=== PATIENT | male | born 1990 | race Caucasian/White ===

== ENCOUNTER 2017-12-14 11:40 | Emergency (ER) | payer OTHER ==
--- NOTE | 2017-12-14 12:48 | ED ---
Syncope/Near Syncope - HPI Summary HPI Summary: The pt is a 27 y/o male [facility] c/o an unwitnessed syncopal episode at 10: 30 hrs today. It occurred while doing bench presses at the gym for about 20 minutes. He felt nauseous , hitting his head on the corner of a wall, and injuring his R eyebrow. The pt is uncertain how long the syncope episode lasted. He notes difficulty ambulating, dizziness and lightheadedness that forced him to crawl upstairs to his room but denies vomiting. The pt arrived with a R eyebrow injury with controlled bleeding. He reports experiencing similar sx before, usually alleviating by stopping the physical exercise. The pt is unsure when he received his last tetanus shot. - History Of Current Complaint Chief Complaint: EDHeadInjury Time Seen by Provider: 12/14/17 12:21 Hx Obtained From: Patient Onset/Duration: Sudden Onset - 10:30, Still Present - R eyebrow laceration, Resolved - Syncope Context: Unwitnessed, Loss Of Consciousness Associated Head Trauma: Yes Alleviating Factor(s): Rest Associated Signs And Symptoms: Negative - Vomiting, Dizzy, Head Trauma (Recent) , Headache, Other - LOC Frequency: Episodes x___ - 1 - Allergies/Home Medications Allergies/Adverse Reactions: Allergies Allergy/AdvReac Type Severity Reaction Status Date / Time Penicillins Allergy Unknown Verified 12/14/17 11:57 Reaction Details Home Medications: Home Medications Ibuprofen TAB* [Advil TAB*] 200 mg PO Q6H PRN 12/14/17 [History Confirmed ] PMH/Surg Hx/FS Hx/Imm Hx Previously Healthy: Yes Endocrine/Hematology History: Denies: Hx Diabetes Cardiovascular History: Denies: Hx Hypertension Respiratory History: Denies: Hx Asthma Sensory History: Denies: Hx Deafness Opthamlomology History: Denies: Hx Legally Blind Neurological History: Denies: Hx Seizures - Cancer History Hx Hematologic Symptoms: No Hx Chemotherapy: No - Surgical History Surgery Procedure, Year, and Place: Had a mole removed from the LUE when young. Recently had a hernia repair - Immunization History Date of Tetanus Vaccine: The pt is uncertain Infectious Disease History: No Infectious Disease History: Reports: Traveled Outside the [place] in Last 30 Days - [place] - Family History Known Family History: Positive: Other - Cancer Negative: Cardiac Disease, Hypertension, Diabetes, Seizure Disorder - Social History Occupation: Student Lives: Dormitory/Roommates Review of Systems Constitutional: Other - Positive: Dizziness, lightheadedness Positive: Nausea. Negative: Vomiting Positive: Other - Positive: Difficulty ambulating Skin: Other - Positive: Laceration with controlled bleeding on the R forehead Positive: Headache, Syncope All Other Systems Reviewed And Are Negative: Yes Physical Exam - Summary Physical Exam Summary: Appearance: The patient is well-nourished in no acute distress and in no acute pain. Skin: There is a cut with controlled bleeding over the R eyebrow. The skin is warm and dry and skin color reflects adequate perfusion. HEENT: The head is normocephalic and atraumatic. The pupils are equal and reactive. The conjunctivae are clear and without drainage. Nares are patent and without drainage. Mouth reveals moist mucous membranes and the throat is without erythema and exudate. The external ears are intact. The ear canals are patent and without drainage. The tympanic membranes are intact. Neck: The neck is supple with full range of motion and non-tender. There are no carotid bruits. There is no neck vein distension. Respiratory: Chest is non-tender. Lungs are clear to auscultation and breath sounds are symmetrical and equal. Cardiovascular: Heart is regular rate and rhythm. There is no murmur or rub auscultated. There is no peripheral edema and pulses are symmetrical and equal. Abdomen: The abdomen is soft and non-tender. There are normal bowel sounds heard in all four quadrants and there is no organomegaly palpated. Musculoskeletal: There is no back tenderness noted. Extremities are non-tender with full range of motion. There is good capillary refill. There is no peripheral edema or calf tenderness elicited. Neurological: Patient is alert and oriented to person, place and time. The patient has symmetrical motor strength in all four extremities. Cranial nerves are grossly intact. Deep tendon reflexes are symmetrical and equal in all four extremities. Psychiatric: The patient has an appropriate affect and does not exhibit any anxiety or depression. Triage Information Reviewed: Yes Vital Signs On Initial Exam: Initial Vitals Temp Pulse Resp BP Pulse Ox 97.1 F 88 16 137/91 99 12/14/17 11:57 12/14/17 11:57 12/14/17 11:57 12/14/17 11:57 12/14/17 11:57 Vital Signs Reviewed: Yes Procedures - Laceration/Wound Repair 1 Location: face - R eyebrow Description: Linear Anesthesia: Local, 1.0%, Lido Length, Depth and Shape: 2 cm Betadine Prep?: No - Hibiclens Laceration/Wound Explored: clean Closure: Single Layer - Simple interrupted. 3 Eyebrow sutures have long tags left on. Suture Type: Nylon - 6.0 Number of Sutures: 8 Layer Closure?: No Sterile Dressing Applied?: Yes - Triple antibiotic applied Diagnostics - Vital Signs Vital Signs Temp Pulse Resp BP Pulse Ox 12/14/17 11:57 97.1 F 88 16 137/91 99 - Laboratory Result Diagrams: 12/14/17 12:57 12/14/17 12:57 Lab Statement: Any lab studies that have been ordered have been reviewed, and results considered in the medical decision making process. Re-Evaluation - Re-Evaluation First Eval Re-Evaluation Time: 17:16 Change: Improved - The pt feels better and is ready to go home. Course/Dx Course Of Treatment: Mr. Funes presented after a syncopal episode. He hasn't been exercising recently and decided to get back into it. He was lifting some weights and began to feel lightheaded. He was in the basement of his apartment building and decided to go up to his apartment. He continued to be lightheaded with difficulty seeing and everything getting black as he tried to walk down the [place] to his apartment. He thinks he banged his head on the corner of a wall and eventually made it to his apartment where an ambulance was called for him. By the time he gets here he feels fine. He sustained a laceration to his right eyebrow. He was kept on a monitor and labs were tested including a delayed troponin. He remained stable and nontoxic in appearance and is labs were within normal limits. I sutured up his right eyebrow and recommended suture removal in 3-5 days and follow-up with PCP. He states this is not the first time he has had an episode such as this but this was the worst. I don't hear a murmur with squatting or Valsalva but he clearly needs further workup. - Diagnoses Provider Diagnoses: Syncope, Facial laceration Discharge - Sign-Out/Discharge Documenting (check all that apply): Patient Departure - DC - Discharge Plan Condition: Improved Disposition: HOME Patient Education Materials: Laceration (ED), Syncope (ED) Referrals: [facility] [Outside] - 2 Days Additional Instructions: Follow up with your PCP in 2 days Return to ED for any new or worsening symptoms - Billing Disposition and Condition Condition: IMPROVED Disposition: Home - Attestation Statements Document Initiated by Scribe: Yes Documenting Scribe: Yady Yañez Provider For Whom Bouchra is Documenting (Include Credential): Dr. Bret Jesus MD Scribe Attestation: Yady Aden, scribed for Dr. Bret Jesus MD on 12/15/17 at 1213. Scribe Documentation Reviewed: Yes Provider Attestation: The documentation as recorded by the Yady trevizo accurately reflects the service I personally performed and the decisions made by me, Dr. Bret Jesus MD
[2017-12-14 13:03] LABS: ABS Basophils 0 10^3/ul (0-0.2); ABS Eosinophils 0 10^3/ul (0-0.6); ABS Lymphocytes 1.1 10^3/ul (1.0-4.8); ABS Monocytes 0.8 10^3/ul (0-0.8); ABS Neutrophils 12.2 10^3/ul (1.5-7.7); ABS Nucleated RBC 0 10^3/ul; Eosinophil % 0.2 % (0-6); Hematocrit 43 % (42-52); Hemoglobin 14.8 g/dl (14.0-18.0); Lymphocyte % 7.9 % (25-47); Mean Corpuscular HGB Conc 34 g/dl (31-36); Mean Corpuscular Hemoglobin 32 pg (27-31); Mean Corpuscular Volume 92 fL (80-94); Mean Platelet Volume 7.7 um3 (7.4-10.4); Nucleated Red Blood Cells % 0; Platelet Count 264 10^3/ul (150-450); Red Blood Count 4.68 10^6/ul (4.00-5.40); Red Cell Distribution Width 13 % (10.5-15); White Blood Count 14.2 10^3/ul (3.5-10.8)
[2017-12-14 13:24] LABS: EGFR Non-African American 86.6 (>60)
[2017-12-14 15:50] LABS: Urine Appearance Clear; Urine Blood Negative (Negative); Urine Color Yellow; Urine Ketones Trace (Negative); Urine Protein Negative (Negative); Urine Specific Gravity 1.011 (1.010-1.030); Urine Urobilinogen Negative (Negative)
[2017-12-14 18:00] VITALS: BP 123/73
== END 2017-12-14 18:00 | disposition home or self-care (01) ==
LOC: ED 11:40
DX: S01.111A Laceration without foreign body of right eyelid and periocular area, initial encounter (principal); R55 Syncope and collapse; W22.8XXA Striking against or struck by other objects, initial encounter; Y92.39 Other specified sports and athletic area as the place of occurrence of the external cause; Z88.0 Allergy status to penicillin
CPT/HCPCS: 12011; 36415; 80053; 81003; 83605; 83735; 84443; 84484; 85025; 93005; 99283